=== PATIENT | male | born 1985 | race Two or more races ===

== ENCOUNTER 2016-09-12 05:26 | Emergency (ER) | payer BC ==
[~2016-09-12] VITALS: Ht 172.7 cm; Wt 98.0 kg
[2016-09-12 05:37] VITALS: BP 112/71
== END 2016-09-12 09:10 | disposition left against medical advice (07) ==
LOC: ER 05:26
DX: R50.9 Fever, unspecified (principal); R07.0 Pain in throat; Z53.21 Procedure and treatment not carried out due to patient leaving prior to being seen by health care provider

== ENCOUNTER 2024-03-06 00:46 | Emergency (ER) | payer BC ==
[~2024-03-06] VITALS: Ht 172.7 cm; Wt 104.3 kg
[2024-03-06 01:08] VITALS: BP 135/78; PULSE 62; RESP 17; O2SAT 99
[2024-03-06 02:18] LABS: Urine Bacteria None Seen /hpf (None Seen)
[2024-03-06 02:27] LABS: Urine Blood Negative /uL (Negative); Urine Clarity Clear (Clear); Urine Color Yellow (Yellow); Urine Protein, UAD Negative (Negative); Urine Specific Gravity 1.017 (1.001-1.035); Urine Urobilinogen Normal (Negative); Urine WBC 1 /hpf (0 - 3); Urine pH 5.5 (5.0-9.0)
== END 2024-03-06 04:04 | disposition home or self-care (01) ==
LOC: ER 00:46
DX: N28.89 Other specified disorders of kidney and ureter (principal); N13.30 Unspecified hydronephrosis
CPT/HCPCS: 74176; 81001

== ENCOUNTER 2024-03-07 10:27 | Inpatient (IN) | payer BC ==
[~2024-03-07] VITALS: Ht 172.7 cm; Wt 105.1 kg
[2024-03-07 11:17] LABS: Urine Bacteria None Seen /hpf (None Seen)
[2024-03-07 11:25] VITALS: RESP 18; O2SAT 99
[2024-03-07] MEDS: KETOROLAC TROMETH 30 MG/ML 1ML VIAL IV ONE (11:30)
[2024-03-07 11:45] LABS: Urine Blood Negative /uL (Negative); Urine Clarity Clear (Clear); Urine Color Yellow (Yellow); Urine Mucus FEW (None Seen); Urine Protein, UAD Negative (Negative); Urine Specific Gravity 1.013 (1.001-1.035); Urine Urobilinogen Normal (Negative); Urine WBC 1 /hpf (0 - 3); Urine pH 5.5 (5.0-9.0)
[2024-03-07 11:52] LABS: Basophils # (auto) 0 10 ^3/uL (0-0.2); Basophils % (auto) 0.2 % (0.0-2.0); Eosinophils # (auto) 0.2 10 ^3/uL (0-0.8); Eosinophils % (auto) 1.6 % (0.0-7.0); Hematocrit 43.4 % (41.0-53.0); Hemoglobin 14.9 g/dL (13.5-17.5); Lymphocytes # (auto) 2.4 10 ^3/uL (0.4-5.4); Lymphocytes % (auto) 19.9 % (10.0-50.0); Mean Corpuscular Hemoglobin 30.2 pg (28.0-32.0); Mean Corpuscular Hgb Conc. 34.3 g/dL (32.0-36.0); Monocytes # (auto) 1.1 10 ^3/uL (0-1.3); Monocytes % (auto) 9.1 % (0.0-12.0); Neutrophils # (auto) 8.4 10 ^3/uL (1.6-8.6); Neutrophils % (auto) 69.2 % (37.0-80.0); Nucleated Red Blood Cells % 0.1 %; Platelet Count (auto) 250 10^3/uL (140-450); Red Blood Cells 4.94 10^6/uL (4.5-5.90); Red Cell Distribution Width 13.7 % (11.8-14.3); White Blood Cell 12.2 10^3/uL (4.4-10.8)
[2024-03-07 11:54] LABS: Chloride 107 mmol/L (98-107); Potassium 3.7 mmol/L (3.5-5.1); Sodium 139 mmol/L (136-145)
[2024-03-07 11:55] LABS: Anion Gap 4 (5-15); Calcium 10.1 mg/dL (8.7-10.4); Carbon Dioxide 28 mmol/L (20-30)
[2024-03-07 12:00] LABS: BUN/Creatinine Ratio 8.7 (10.0-20.0); Blood Urea Nitrogen 9 mg/dL (9-23); Glucose 96 mg/dL (74-106)
[2024-03-07] MEDS: HYDROcodone-ACET 5/325MG TAB PO PRN (17:39)
[2024-03-07] MEDS: cefTRIAXone 1GM/50ML D5W 50 ML IV SCH (17:46)
[2024-03-07 19:30] VITALS: PULSE 54; RESP 16; O2SAT 97
[2024-03-07 20:16] VITALS: BP 130/77; PULSE 52; RESP 18; O2SAT 99
[2024-03-07 20:51] VITALS: PULSE 60; RESP 17; O2SAT 96
[2024-03-07] MEDS: ACETAMINOPHEN 325 MG TAB PO PRN (21:06)
[2024-03-07 22:37] VITALS: BP 130/77; PULSE 50; RESP 18; O2SAT 99
[2024-03-08 01:00] VITALS: BP 94/57; PULSE 60; RESP 17; TEMP 98.7; O2SAT 96
[2024-03-08 05:00] VITALS: BP 96/51; PULSE 58; RESP 17; TEMP 98.7; O2SAT 96
[2024-03-08 06:26] LABS: Basophils # (auto) 0 10 ^3/uL (0-0.2); Basophils % (auto) 0.5 % (0.0-2.0); Eosinophils # (auto) 0.4 10 ^3/uL (0-0.8); Eosinophils % (auto) 4.2 % (0.0-7.0); Hematocrit 40.3 % (41.0-53.0); Hemoglobin 13.8 g/dL (13.5-17.5); Lymphocytes # (auto) 2.6 10 ^3/uL (0.4-5.4); Mean Corpuscular Hemoglobin 30.1 pg (28.0-32.0); Mean Corpuscular Hgb Conc. 34.2 g/dL (32.0-36.0); Mean Corpuscular Volume 87.9 fL (80.0-100.0); Monocytes # (auto) 0.8 10 ^3/uL (0-1.3); Monocytes % (auto) 9.1 % (0.0-12.0); Neutrophils # (auto) 5.1 10 ^3/uL (1.6-8.6); Neutrophils % (auto) 57.2 % (37.0-80.0); Nucleated Red Blood Cells % 0.1 %; Platelet Count (auto) 204 10^3/uL (140-450); Red Blood Cells 4.58 10^6/uL (4.5-5.90); Red Cell Distribution Width 13.4 % (11.8-14.3); White Blood Cell 8.9 10^3/uL (4.4-10.8)
[2024-03-08 06:28] LABS: Anion Gap 6 (5-15); Calcium 9.1 mg/dL (8.7-10.4); Carbon Dioxide 28 mmol/L (20-30); Chloride 107 mmol/L (98-107); Potassium 3.8 mmol/L (3.5-5.1); Sodium 141 mmol/L (136-145)
[2024-03-08 06:33] LABS: Glucose 95 mg/dL (74-106)
[2024-03-08 06:34] LABS: BUN/Creatinine Ratio 11.8 (10.0-20.0); Blood Urea Nitrogen 12 mg/dL (9-23)
[2024-03-08 08:00] VITALS: PULSE 88; RESP 18; O2SAT 98
[2024-03-08 09:24] VITALS: BP 105/59; PULSE 68; RESP 17; TEMP 98.5; O2SAT 99
[2024-03-08 13:31] VITALS: BP 136/66; PULSE 65; RESP 17; TEMP 98.5; O2SAT 99
== END 2024-03-08 15:17 | disposition home or self-care (01) | DRG 694 ==
LOC: ER 10:27 → OVERFLOW 17:01 → EAST 20:16
PROVIDERS: ADMIT Registered Nurse General Practice; ATTEND Internal Medicine
DX: N13.30 Unspecified hydronephrosis (principal); N13.8 Other obstructive and reflux uropathy; N40.1 Benign prostatic hyperplasia with lower urinary tract symptoms; Z68.33 Body mass index [BMI] 33.0-33.9, adult; N32.3 Diverticulum of bladder; K42.9 Umbilical hernia without obstruction or gangrene; E66.9 Obesity, unspecified; R33.8 Other retention of urine; N41.9 Inflammatory disease of prostate, unspecified; Z82.49 Family history of ischemic heart disease and other diseases of the circulatory system
CPT/HCPCS: 36415; 74176; 80048; 81001; 85025; 96365; 96375; G0378; J1885